=== PATIENT | male | born 1955 | race Caucasian/White ===

== ENCOUNTER 2016-04-12 11:41 | Emergency (ER) | payer OTHER ==
[~2016-04-12] VITALS: Ht 177.8 cm; Wt 94.8 kg
[~2016-04-12 11:41] MED LIST: ATORVASTATIN CA20 M1 PO; COLACE100 M1 PO; COUMADIN5 M2 PO; DILAUDID2 M1 PO; FLOMAX0.4 M1 PO; MIRALAX17 G1 PO; MS CONTIN30 M1 PO; TRAMADOL HCL50 M1
[2016-04-12] MEDS ORDERED: INDOMETHACIN50 M1 PO (11:54)
--- NOTE | 2016-04-12 12:36 | ED UPPER/LOWER EXTREMITY COMPL ---
History of Present Illness General Chief Complaint: Lower Extremity Problems Stated Complaint: RT CALF PAIN Source: patient, old records Exam Limitations: no limitations Vital Signs & Intake/Output Vital Signs & Intake/Output Vital Signs Date Time Temp Pulse Resp B/P Pulse O2 O2 Flow FiO2 Ox Delivery Rate 04/12 1311 98.0 84 13 130/78 96 Room Air 04/12 1143 97.4 88 18 126/87 99 Room Air Allergies Coded Allergies: NO KNOWN ALLERGIES (07/04/15) Reconcile Medications Atorvastatin Calcium 20 MG TABLET 1 TAB PO DAILY CHOLESTEROL (Reported) Hydromorphone HCl (Dilaudid) 2 MG TABLET 1-2 TAB PO Q4P PRN PAIN Indomethacin 50 MG CAPSULE 1 CAP PO TID GOUT (Reported) with food Tamsulosin HCl (Flomax) 0.4 MG CAP.ER.24H 1 CAP PO DAILY prostate (Reported) Warfarin Sodium (Coumadin) 5 MG TABLET 1 TAB PO DAILY BLOOD THINNER DOSED ACCORDING TO INR. INR TWICE WEEKLY UNTIL STABLE. GOAL INR 2.5-[address] MURPHY OFFICE Triage Note: 60 Y/O MALE C/O "CRAMP" IN RIGHT LOWER EXTREMITY; HAD TOTAL KNEE REPLACEMENT IN FEBRUARY. WAS AT PHYSICAL THERAPY TODAY AND MENTIONED THE CRAMP SO WAS SENT TO ED TO R/O DVT. PT DENIES NOTING SWELLING OR REDNESS. Triage Nurses Notes Reviewed? yes HPI: 60-year-old male who is approximately 5 weeks status post right total knee arthroplasty with complaints of right posterior medial calf pain that started yesterday, cramping sensation. It is mild. He was on Coumadin for approximately 2 and half weeks postoperatively. He is doing outpatient physical therapy and progressing nicely, he has no other complaints, he states he is up and around and fairly active recently. He denies any chest pain or shortness of breath. There is no injury to the area. He was seen by his physical therapist today who advised him to come to the ER to get ultrasound. (DELMI HERNANDEZ,MAURICIO) Past History Travel History Traveled to [place] past 21 day No Medical History Any Pertinent Medical History? see below for history Neurological: NONE EENT: DEVIATED SEPTUM Cardiovascular: hyperlipidemia Respiratory: NONE Gastrointestinal: NONE Hepatic: NONE Renal: NONE Musculoskeletal: NONE Psychiatric: NONE Endocrine: NONE Blood Disorders: NONE Cancer(s): NONE History of MRSA: No History of VRE: No History of CDIFF: No Influenza Vaccine: 02/22/16 Tetanus Vaccine: Surgical History Surgical History: knee replacement (right), ARTHROSCOPIC R KNEE ARTHROSCOPIC L KNEE APPENDECTOMY CARPAL TUNNEL REVISION ABDOMINAL HERNIA Psychosocial History Who do you live with Spouse What is your primary language Turkish Tobacco Use: Never used Family History Hx Contributory? No (MAURICIO CLARK) Review of Systems Review of Systems Constitutional: Reports: see HPI. EENTM: Reports: no symptoms. Respiratory: Reports: no symptoms. Cardiovascular: Reports: no symptoms. Gastrointestinal/Abdominal: Reports: no symptoms. Genitourinary: Reports: no symptoms. Musculoskeletal: Reports: see HPI. Skin: Reports: no symptoms. Neurological/Psychological: Reports: no symptoms. Hematologic/Endocrine: Reports: no symptoms. Immunological: Reports: no symptoms. All Other Systems: Reviewed and Negative (MAURICIO CLARK) Physical Exam Physical Exam General Appearance: well developed/nourished Comments: Well-developed well-nourished no apparent distress. HEENT: Atraumatic, extraocular motion intact Neck: Supple, no lymphadenopathy Back: Nontender Respiratory: No respiratory distress Extremities: Right lower extremity, right knee, incision well-healed, mild effusion, no erythema warmth tenderness or signs of swelling. Range of motion is 0-110. There is mild tenderness to the right medial calf region, negative Homans sign, trace edema of the right lower extremity Left lower extremity, no swelling or edema or tenderness Bilateral lower extremity neurovascularly intact with sensation motor grossly intact Neuro: Alert and oriented x3 Psych: Mood affect normal, normal memory normal judgment. Skin: Warm and dry, no rash on exposed skin (MAURICIO CLARK) Progress Differential Diagnosis: contusion, DVT, sprain, tendon injury Plan of Care: Orders Procedure Date/time Status US-DUPLEX VENOUS EXTREM UNI 04/12 1158 Active Diagnostic Imaging: Viewed by Me: Ultrasound. Discussed w/RAD: Ultrasound. Radiology Impression: PATIENT: VINICIUS CASILLAS PRESENT AGE: 60 PATIENT ACCOUNT NO: [id number] : 56 LOCATION: [facility] ORDERING PHYSICIAN: MAURICIO HERNANDEZ SERVICE DATE: 04/12/16-1159 EXAM TYPE: US - US -DUPLEX VENOUS EXTREM UNI EXAMINATION: LOWER EXTREMITY VENOUS ULTRASOUND, RIGHT CLINICAL INFORMATION: Pain, status post surgery. COMPARISON: None. TECHNIQUE: Doppler spectral analysis and color flow Doppler imaging was performed of the lower extremity. Compression and augmentation maneuvers were performed. FINDINGS : The right common femoral, femoral, popliteal veins were well-identified and normal. They demonstrate normal compressibility and color fill-in without evidence of venous thrombosis. Calf veins demonstrate normal color flow. ADDITIONAL FINDINGS: None. IMPRESSION: No evidence for right lower extremity deep vein thrombosis. DICTATED BY: VARSHA JEAN BAPTISTE MD DATE/TIME DICTATED:1248 RADIO ENGINEER:ELIZABETH DATE/TIME TRANSCRIBED:04/12/161248 (MAURICIO CLARK) Departure Departure Disposition: HOME OR SELF CARE Condition: Stable Clinical Impression Primary Impression: Strain of calf muscle Qualifiers: Encounter type: initial encounter Laterality: right Qualified Code: S86.811A - Strain of other muscle(s) and tendon(s) at lower leg level, right leg , initial encounter Referrals: COLT CARRANZA MD (PCP/Family) Additional Instructions: Activity as tolerated, physical therapy as tolerated. Warm compresses to the calf, gentle stretching. Departure Forms: Customer Survey General Discharge Information (MAURICIO CLARK) PA/LAUNDROMAT WORKER Co-Sign Statement Statement: ED Attending supervision documentation- [] I saw and evaluated the patient. I have also reviewed all the pertinent lab results and diagnostic results. I agree with the findings and the plan of care as documented in the PA's/LAUNDROMAT WORKER's documentation. x I have reviewed the ED Record and agree with the PA's/LAUNDROMAT WORKER's documentation. [] Additions or exceptions (if any) to the PAs/LAUNDROMAT WORKER's note and plan are summarized below: [] (FERNANDO MARCIAL,VICK)
--- NOTE | 2016-04-12 12:54 | ULTRASOUND REPORT ---
EXAMINATION: LOWER EXTREMITY VENOUS ULTRASOUND, RIGHT CLINICAL INFORMATION: Pain, status post surgery. COMPARISON: None. TECHNIQUE: Doppler spectral analysis and color flow Doppler imaging was performed of the lower extremity. Compression and augmentation maneuvers were performed. FINDINGS: The right common femoral, femoral, popliteal veins were well-identified and normal. They demonstrate normal compressibility and color fill-in without evidence of venous thrombosis. Calf veins demonstrate normal color flow. ADDITIONAL FINDINGS: None. IMPRESSION: No evidence for right lower extremity deep vein thrombosis.
[2016-04-12 13:11] VITALS: BP 130/78
== END 2016-04-12 13:11 ==
LOC: ERH 11:41
DX: S86.911A Strain of unspecified muscle(s) and tendon(s) at lower leg level, right leg, initial encounter (principal)